=== PATIENT | female | born 1955 | race Caucasian/White ===

== ENCOUNTER 2021-11-04 06:57 | Inpatient (IN) | payer MEDICARE ==
[~2021-11-04] VITALS: Ht 167.6 cm; Wt 77.7 kg
[2021-11-04] VITALS (15 sets, daily range): BP systolic 94–137; BP diastolic 51–67
[2021-11-04] MEDS ORDERED: LORazepam 0.5 MG tablet PO PRN (07:20)
[2021-11-04] MEDS ORDERED: diphenhydrAMINE 25mg capsule PO PRN ×2 (07:20→11:00)
[2021-11-04] MEDS ORDERED: nitroGLYCERIN 0.4mg SUBLingual tab SL PRN (07:20)
[2021-11-04] MEDS ORDERED: METO25TA6 PO (07:33)
[2021-11-04] MEDS ORDERED: NITR0.4T48 (07:33)
[2021-11-04] MEDS ORDERED: TERB250T89 PO (07:33)
[2021-11-04] MEDS ORDERED: ATOR20TA66 PO (07:33)
[2021-11-04] MEDS ORDERED: ASPI-1071 PO (07:35)
[2021-11-04] MEDS ORDERED: IBUP-24 PO (07:39)
[2021-11-04] MEDS ORDERED: METAXALONE (07:39)
[2021-11-04] MEDS ORDERED: NITRO DUR (07:39)
[2021-11-04] MEDS: normal saline 1,000 ML IV SCH ×2 (07:46→15:53)
[2021-11-04] MEDS ORDERED: heparin 10,000 units/1 ML INJ ONE (08:00)
[2021-11-04] MEDS ORDERED: heparin 1,000 units/ml 10ml inj ONE (08:00)
[2021-11-04] MEDS ORDERED: MAGNESIUM SULFATE 4 MEQ/ML (5gm/10ml) injection ONE (08:00)
[2021-11-04] MEDS ORDERED: potassium Cl 2 mEq/ml inj IV ONE (08:00)
[2021-11-04] MEDS ORDERED: methylPREDNISolone sod succ 1000mg vial ONE (08:00)
[2021-11-04] MEDS ORDERED: aminocaproic acid 250 MG/1 ML inj. ONE (08:00)
[2021-11-04] MEDS ORDERED: phenylephrine 10mg/ml inj. ONE (08:00)
[2021-11-04] MEDS ORDERED: LIDOcaine 2% (20 mg/ml) 5ml cardiac syringe ONE (08:00)
[2021-11-04] MEDS ORDERED: calcium chloride 100 MG/1 ML inj IV ONE (08:00)
[2021-11-04] MEDS ORDERED: sodium bicarbonate (8.4%) 1 mEq/ml syringe ONE (08:00)
[2021-11-04] MEDS ORDERED: albumin (human) 25% 100 ML IV solution IV ONE (08:00)
[2021-11-04] MEDS ORDERED: fentaNYL/PF 50MCG/1 ML 2ML syringe ONE ×2 (09:34→10:44)
[2021-11-04] MEDS ORDERED: LIDOcaine 1% (10mg/ml)w/preservative inj. 20ml MDV ONE ×2 (09:34→10:44)
[2021-11-04] MEDS ORDERED: iohexol 350 MG/ML 50ML vial IV ONE ×2 (09:34→10:44)
[2021-11-04] MEDS ORDERED: midazolam 1 mg/ML 2ml injection ONE ×2 (09:34→10:44)
[2021-11-04] MEDS ORDERED: iohexol 350MG/ML 100ml bottle IV ONE ×2 (09:34→10:44)
[2021-11-04] MEDS ORDERED: heparin 1,000unit/ml 10ml vial 10 ML ONE (10:19)
[2021-11-04] MEDS ORDERED: potassium Cl 20 mEq SR tablet PO PRN (11:00)
[2021-11-04] MEDS ORDERED: vancomycin/NS 1 GM ADD-VANTAGE 250 ML IV ONE (11:00)
[2021-11-04] MEDS ORDERED: HYDROcodone/acetaminophen 5mg/325mg tablet PO PRN (11:00)
[2021-11-04] MEDS ORDERED: ondansetron 4mg rapidly disintigrating tab PO PRN (11:00)
[2021-11-04] MEDS ORDERED: gabapentin 400mg capsule PO ONE (11:00)
[2021-11-04] MEDS ORDERED: potassium Cl 20mEq/100mL bag 100 ML IV PRN (11:00)
[2021-11-04] MEDS ORDERED: MESSAGE TO NURSING PO ONE ×4 (11:00)
[2021-11-04] MEDS ORDERED: potassium Cl 40MEQ/250ML bag 250 ML IV PRN (11:00)
[2021-11-04] MEDS ORDERED: MESSAGE TO PHARMACY IJ ONE (11:00)
[2021-11-04] MEDS ORDERED: potassium Cl 40MEQ/1/2NS 520ml 520 ML IV PRN (11:00)
[2021-11-04] MEDS ORDERED: dextrose 50%-water 50ml dispensing syringe IV PRN (11:00)
[2021-11-04] MEDS ORDERED: Insulin Reg/NS 100units/100mL 100 ML IV SCH (11:00)
[2021-11-04] MEDS ORDERED: magnesium 2GM in 50ml NS 50 ML IV PRN (11:00)
[2021-11-04] MEDS ORDERED: cefazolin/dext.iso 2gm/50ml 50 ML IV ONE (11:00)
[2021-11-04] MEDS ORDERED: insulin glargine (Lantus) pen - multi-dose SQ PRN (11:00)
[2021-11-04] MEDS ORDERED: magnesium 4gm in 100ml NS 100 ML IV PRN (11:00)
[2021-11-04] MEDS ORDERED: potassium CL 10mEq/100ml bag 100 ML IV PRN (11:00)
[2021-11-04] MEDS ORDERED: metoprolol succinate 25mg (24-HOUR) SR. Tablet PO SCH (11:12)
[2021-11-04] MEDS ORDERED: magnesium hydroxide 30ml (MOM) UD suspension PO PRN (11:15)
[2021-11-04] MEDS ORDERED: HYDROcodone/acetaminophen 10/325mg tab PO PRN ×2 (11:15)
[2021-11-04] MEDS ORDERED: morphine 10mg/ml inj. IV PRN (11:15)
[2021-11-04] MEDS ORDERED: acetaminophen 325mg tablet PO PRN ×2 (11:15)
[2021-11-04] MEDS ORDERED: OXAZEpam 15mg capsule PO PRN (11:15)
[2021-11-04] MEDS ORDERED: proCHLORperazine 10 MG/2 ml inj IV PRN (11:15)
[2021-11-04] MEDS: normal saline 1000ml 1,000 ML IV SCH ×2 (11:30→16:00)
[2021-11-04] MEDS ORDERED: heparin 25,000 UNIT/250ml bag 250 ML IV SCH (11:35)
[2021-11-04] MEDS ORDERED: heparin 10,000 units/1 ML INJ IV ONE (11:35)
[2021-11-04] MEDS ORDERED: heparin 10,000 units/1 ML INJ IV PRN (11:35)
[2021-11-04] MEDS ORDERED: LIDOcaine 2% 10ml TOPICAL JELLY (Urojet) MM ONE (14:45)
[2021-11-04 15:52] LABS: CLARITY,URINE CLEAR (Clear); COLOR,URINE YELLOW (Yellow); GLUCOSE, URINE NEGATIVE (Neg); KETONES,URINE NEGATIVE (Neg); LEUKOCYTE ESTERASE ,URINE NEGATIVE (Neg); NITRITES, URINE NEGATIVE (Neg); OCCULT BLOOD,URINE TRACE-INTACT (Neg); PROTEIN,URINE NEGATIVE (Neg); UROBILINOGEN,URINE 0.2 E.U/dL (0.2-1.0)
[2021-11-04 15:54] LABS: UA COLLECTION TYPE FOLEY CATH
[2021-11-04 16:12] LABS: BACTERIA,URINE NONE SEEN /HPF (Neg); MUCUS STRANDS NONE SEEN /LPF (Neg); RBC,URINE 0-2 /HPF (0-2); SQUAMOUS EPITHELIAL CELL,UR FEW /LPF (FEW); WBC,URINE NONE SEEN /HPF (0-4)
[2021-11-04 17:15] LABS: BASOPHILS # (AUTO) 0.1 X10'3 (0-0.2); BASOPHILS % (AUTO) 0.9 % (0-1); EOSINOPHILS # (AUTO) 0.3 X10'3 (0-0.9); EOSINOPHILS % (AUTO) 3.2 % (0-6); HEMATOCRIT 36.4 % (35.0-45.0); LYMPHOCYTES # (AUTO) 3.9 X10'3 (1.1-4.8); LYMPHOCYTES % (AUTO) 41.3 % (21-51); MEAN CORPUSCULAR HGB CONC 33.1 g/dL (33.0-36.5); MEAN CORPUSCULAR VOLUME 90.7 FL (78-98); MEAN PLATELET VOLUME 8.4 FL (7.4-10.4); MONOCYTES # (AUTO) 0.9 X10'3 (0-0.9); MONOCYTES % (AUTO) 9.2 % (2-12); NEUTROPHILS # (AUTO) 4.3 X10'3 (1.8-7.7); NEUTROPHILS % (AUTO) 45.4 % (42-75); PLATELET COUNT 247 X10'3 (140-440); RED BLOOD COUNT 4.01 X10'6 (4.20-5.60); RED CELL DISTRIBUTION WIDTH 13.6 % (11.5-14.5); WHITE BLOOD COUNT 9.5 X10'3 (4.5-11.0)
[2021-11-04 17:25] LABS: ALBUMIN 3.1 G/DL (3.4-5.0); ANION GAP 5 (8-16); BLOOD UREA NITROGEN 16 MG/DL (7-18); CALCIUM 8.2 MG/DL (8.5-10.1); CHLORIDE 108 MMOL/L (99-107); CREATININE 0.84 MG/DL (0.40-0.90); GLUCOSE 101 MG/DL (70-104); POTASSIUM 3.7 MMOL/L (3.5-5.1); SODIUM 140 MMOL/L (135-145); TOTAL CARBON DIOXIDE 27.1 MMOL/L (24-32); eGFR 68 ML/MIN
[2021-11-04 17:30] LABS: HEMOGLOBIN A1C 5.8 % (4.5-6.2)
--- NOTE | 2021-11-04 18:30 | NUR ---
I have received report from Karina DOUGLAS from Short Stay unit and had the opportunity to ask questions and assume patient care. Patient was dropped off shortly after and I assumed responsibility of care.
--- NOTE | 2021-11-04 19:50 | NUR ---
Heparin drip is restarted and another aPTT will be drawn two hours from now per protocol.
[2021-11-04] MEDS ORDERED: sod chloride 0.9% 10ml flush syringe IV SCH (20:00)
[2021-11-04] MEDS ORDERED: docusate sod 100mg capsule PO SCH (20:00)
--- NOTE | 2021-11-04 21:50 | NUR ---
Patient stated that she was getting chest pain and that it has happened in the past. EKG was performed and results are in patients physical chart. Nitro sublingual was given per orders and labs were drawn.
[2021-11-04] MEDS: cyclobenzaprine 10mg tablet PO PRN (22:09)
[2021-11-04 22:10] LABS: BASOPHILS # (AUTO) 0.1 X10'3 (0-0.2); BASOPHILS % (AUTO) 1.1 % (0-1); EOSINOPHILS # (AUTO) 0.3 X10'3 (0-0.9); EOSINOPHILS % (AUTO) 3.3 % (0-6); HEMATOCRIT 35.5 % (35.0-45.0); HEMOGLOBIN 11.9 g/dl (12.0-16.0); MEAN CORPUSCULAR HEMOGLOBIN 30.2 PG (27.0-31.0); MEAN CORPUSCULAR HGB CONC 33.5 g/dL (33.0-36.5); MEAN PLATELET VOLUME 8.6 FL (7.4-10.4); MONOCYTES % (AUTO) 9.8 % (2-12); NEUTROPHILS # (AUTO) 4.6 X10'3 (1.8-7.7); NEUTROPHILS % (AUTO) 45.8 % (42-75); PLATELET COUNT 237 X10'3 (140-440); RED BLOOD COUNT 3.95 X10'6 (4.20-5.60); RED CELL DISTRIBUTION WIDTH 13.4 % (11.5-14.5); WHITE BLOOD COUNT 10.1 X10'3 (4.5-11.0)
[2021-11-04 22:23] LABS: APTT 34 SECONDS (22-32)
[2021-11-04 22:25] LABS: ALANINE AMINOTRANSFERASE 29 U/L (12-78); ALBUMIN 2.9 G/DL (3.4-5.0); ALKALINE PHOSPHATASE 110 IU/L (46-116); ANION GAP 6 (8-16); ASPARTATE AMINO TRANSFERASE 17 U/L (10-37); BILIRUBIN,TOTAL 0.1 MG/DL (0.1-1.0); BLOOD UREA NITROGEN 16 MG/DL (7-18); CALCIUM 8.1 MG/DL (8.5-10.1); CHLORIDE 109 MMOL/L (99-107); GLUCOSE 95 MG/DL (70-104); SODIUM 141 MMOL/L (135-145); TOTAL CARBON DIOXIDE 26.5 MMOL/L (24-32); TOTAL PROTEIN 5.8 G/DL (6.4-8.2); eGFR 72 ML/MIN
[2021-11-04 22:27] LABS: MAGNESIUM 1.9 MG/DL (1.5-2.4); PHOSPHORUS 3.3 MG/DL (2.3-4.5)
--- NOTE | 2021-11-04 22:30 | NUR ---
Patient has chronic back pain from prior lumbar fusion. Morphine was given and pain management was effective. repositioning was also performed.
[2021-11-04] MEDS: morphine 2 MG/ML inj. syringe IV PRN (22:45)
[2021-11-05] VITALS (29 sets, daily range): BP systolic 95–146; BP diastolic 50–70
--- NOTE | 2021-11-05 02:00 | NUR ---
Critical troponin level was received of 329. I reassessed the patient for signs and symptoms of a OK, the patient denied pain in her chest but said that there was slight pain in her jaw. I notified the charge nurse and followed up with Dr. Ibarra. The Doctor confirmed the critical value and the findings on the assessment and said he would be coming into the hospital to potentially take the patient into surgery early.
[2021-11-05] MEDS: morphine 2 MG/ML inj. syringe IV PRN (02:15)
[2021-11-05] MEDS ORDERED: VANCOMYCIN 1GM/200ML IVPB 200 ML IV ONE (02:25)
--- NOTE | 2021-11-05 02:30 | NUR ---
Dr. Ibarra came in and explained to the patient she would be going into surgery early and the patient agreed. Shortly after the PA and Anesthesiologist came in to confirm the surgery with the patient and explain the risks of the procedure. Blood transfusion and surgery consents were signed.
[2021-11-05 03:22] LABS: ABG HCO3 22.5 mmol/L (22.0-26.0); ABG OXYGEN SATURATION 94.2 % (94-97); FCOHb 0.1 % (0.0-3.9); FMetHb 0.2 % (0.0-1.5); FO2Hb 93.9 % (94-97); PATIENT TEMPERATURE 36.5; TOTAL HEMOGLOBIN 12.9 G/dl (12.0-16.0)
[2021-11-05] MEDS ORDERED: heparin 10,000 units/1 ML INJ ONE (03:22)
[2021-11-05] MEDS ORDERED: nitroGLYCERIN-Tridil 50MG/D5W 250 ML IV PRN ×2 (03:25→08:55)
[2021-11-05] MEDS ORDERED: nitroGLYCERIN-Tridil 50MG/D5W 250 ML IV ONE (03:25)
[2021-11-05] MEDS ORDERED: SUFENTANIL CITRATE 50 MCG/ML 2ml ampule IV ONE (03:32)
[2021-11-05] MEDS ORDERED: propofol inj 20 ML IV ONE (03:52)
[2021-11-05] MEDS ORDERED: LIDOcaine 2% (20mg/ml) 5ml vial ONE (03:52)
[2021-11-05] MEDS ORDERED: LORazepam 2 mg/ml vial ONE (03:52)
[2021-11-05] MEDS ORDERED: rocuronium 10mg/ml inj IV ONE ×2 (03:53→08:31)
[2021-11-05] MEDS ORDERED: phenylephrine 10mg/ml inj. ONE (03:54)
--- NOTE | 2021-11-05 03:55 | NUR ---
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 Ativan was given and the patient left for surgery.
[2021-11-05] MEDS ORDERED: famotidine/PF 10 mg/ml inj IV ONE (03:59)
[2021-11-05] MEDS: ipratropium 0.5 MG/2.5ML nebule IH SCH ×6 (04:00→23:50)
[2021-11-05 04:41] LABS: ABG BASE EXCESS -1.1 mmol/L (-2.0-2.0); ABG HCO3 22.5 mmol/L (22.0-26.0); ABG OXYGEN SATURATION 99.5 % (94-97); ABG PCO2 34.1 mmHg (32.0-45.0); CL (ABG) 111 mmol/L (98-110); FCOHb 0.1 % (0.0-3.9); FMetHb 0.3 % (0.0-1.5); FO2Hb 99.1 % (94-97); GLUCOSE (ABG) 87 mg/dl (70-105); IONIZED CA (ABG) 1.15 mmol/L (1.10-1.43); K (ABG) 3.7 mmol/L (3.5-5.0); TOTAL HEMOGLOBIN 11.3 G/dl (12.0-16.0)
[2021-11-05] MEDS ORDERED: papaverine 30 mg/ml 2ml inj. IA ONE (05:08)
[2021-11-05] MEDS ORDERED: heparin 10,000 units/1 ML INJ IR ONE (05:08)
[2021-11-05] MEDS ORDERED: ceFAZolin 1000mg inj IR ONE (05:09)
[2021-11-05 05:46] LABS: ABG BASE EXCESS -0.7 mmol/L (-2.0-2.0); ABG HCO3 22.7 mmol/L (22.0-26.0); ABG OXYGEN SATURATION 99.7 % (94-97); ABG PCO2 32.2 mmHg (32.0-45.0); ABG PO2 309.5 mmHg (75.0-100.0); CL (ABG) 109 mmol/L (98-110); FCOHb 0.8 % (0.0-3.9); FMetHb 0.3 % (0.0-1.5); FO2Hb 98.6 % (94-97); GLUCOSE (ABG) 97 mg/dl (70-105); IONIZED CA (ABG) 1.04 mmol/L (1.10-1.43); K (ABG) 5.2 mmol/L (3.5-5.0); TOTAL HEMOGLOBIN 8.5 G/dl (12.0-16.0)
[2021-11-05 06:27] LABS: ABG BASE EXCESS VENOUS -0.9 mmol/L (-2.0 - 2.0); ABG PCO2 VENOUS 40.6 mmHg (38.0-51.0); ABG PO2 VENOUS 47.2 mmHg (25.0-35.0); CL (ABG) 109 mmol/L (98-110); FHHb VENOUS 15.6 %; FMetHb VENOUS 0.3 % (0.0 - 0.5); FO2Hb VENOUS 83.1 %; GLUCOSE (ABG) 120 mg/dl (70-105); IONIZED CA (ABG) 1.05 mmol/L (1.10-1.43); K (ABG) 5.1 mmol/L (3.5-5.0); TOTAL HEMOGLOBIN 8.6 G/dl (12.0-16.0)
[2021-11-05 07:01] LABS: ABG BASE EXCESS 1.7 mmol/L (-2.0-2.0); ABG HCO3 25.9 mmol/L (22.0-26.0); ABG OXYGEN SATURATION 99.8 % (94-97); ABG PCO2 38.7 mmHg (32.0-45.0); ABG PO2 432.3 mmHg (75.0-100.0); CL (ABG) 109 mmol/L (98-110); FCOHb 1.1 % (0.0-3.9); FMetHb 0.3 % (0.0-1.5); FO2Hb 98.4 % (94-97); GLUCOSE (ABG) 122 mg/dl (70-105); IONIZED CA (ABG) 1.15 mmol/L (1.10-1.43); K (ABG) 5.5 mmol/L (3.5-5.0); TOTAL HEMOGLOBIN 7.8 G/dl (12.0-16.0)
[2021-11-05 07:17] LABS: ACT @ 1.70 U 304 SEC (193-297); ACT @ 2.84 U 435 SEC (260-420); BASELINE ACT 151 SEC (101-148); PATIENT WEIGHT 76.0k KG
[2021-11-05] MEDS ORDERED: vasopressin 40 UNIT in D5W 40ml IV DRIP IV SCH (07:50)
[2021-11-05] MEDS: terbinafine 250mg tablet PO SCH (08:00)
[2021-11-05] MEDS ORDERED: famotidine/PF 10 mg/ml inj IV SCH (08:00)
[2021-11-05] MEDS ORDERED: metoprolol tartrate 12.5mg (1/2 tablet) PO SCH (08:00)
[2021-11-05] MEDS ORDERED: atorvastatin 20mg tablet PO SCH (08:00)
[2021-11-05] MEDS ORDERED: famotidine/PF IV inj 20 MG in normal saline 100ml IV soln 100 ML IV SCH (08:00)
[2021-11-05] MEDS ORDERED: aspirin 81mg, enteric-coated 1 TAB TABLET.DR PO SCH (08:00)
[2021-11-05] MEDS ORDERED: famotidine 10mg/ml inj IV SCH (08:00)
[2021-11-05 08:03] LABS: ABG BASE EXCESS -1.6 mmol/L (-2.0-2.0); ABG HCO3 22.5 mmol/L (22.0-26.0); ABG PCO2 35.7 mmHg (32.0-45.0); ABG PO2 90.4 mmHg (75.0-100.0); CL (ABG) 111 mmol/L (98-110); FCOHb 0.4 % (0.0-3.9); FMetHb 0.3 % (0.0-1.5); FO2Hb 96.3 % (94-97); GLUCOSE (ABG) 161 mg/dl (70-105); K (ABG) 4.1 mmol/L (3.5-5.0); TOTAL HEMOGLOBIN 9.2 G/dl (12.0-16.0)
[2021-11-05 08:07] LABS: ACTIVATED CLOTTING TIME 113 SEC (101-148)
[2021-11-05] MEDS ORDERED: magnesium hydroxide 30ml (MOM) UD suspension PO PRN (08:55)
[2021-11-05] MEDS ORDERED: acetaminophen 325mg tablet PO PRN (08:55)
[2021-11-05] MEDS ORDERED: metoclopramide 5 mg/ml inj IV PRN (08:55)
[2021-11-05] MEDS ORDERED: potassium CL 10mEq/100ml bag 100 ML IV PRN (08:55)
[2021-11-05] MEDS ORDERED: DOPamine 400mg/D5W 250ml 250 ML IV PRN (08:55)
[2021-11-05] MEDS ORDERED: vasopressin inj. 40 UNIT in dextrose 5%-water 50ml 38 ML IV PRN (08:55)
[2021-11-05] MEDS ORDERED: NORepinephrine 8mg/ 250ml NS 250 ML IV PRN (08:55)
[2021-11-05] MEDS ORDERED: dextrose 50%-water 50ml dispensing syringe IV PRN (08:55)
[2021-11-05] MEDS ORDERED: magnesium 2GM in 50ml NS 50 ML IV PRN (08:55)
[2021-11-05] MEDS ORDERED: normal saline 250ml IV soln 250 ML IV PRN (08:55)
[2021-11-05] MEDS ORDERED: potassium Cl 20 mEq SR tablet PO PRN (08:55)
[2021-11-05] MEDS ORDERED: niCARDipine-NS 40mg/200ml IVPB 200 ML IV PRN (08:55)
[2021-11-05] MEDS ORDERED: magnesium 4gm in 100ml NS 100 ML IV PRN (08:55)
[2021-11-05] MEDS ORDERED: sodium chloride 0.45% 1,000 ML IV SCH (08:55)
[2021-11-05] MEDS ORDERED: insulin glargine (Lantus) pen - multi-dose SQ PRN (08:55)
[2021-11-05] MEDS ORDERED: magnesium citrate 296ml oral solution PO PRN (08:55)
[2021-11-05] MEDS ORDERED: ondansetron/PF 4mg/2ml inj IV PRN (08:55)
[2021-11-05] MEDS ORDERED: morphine 2 MG/ML inj. syringe IV PRN (08:55)
[2021-11-05] MEDS ORDERED: bisacodyl 10mg suppository rectal RC PRN (08:55)
[2021-11-05] MEDS ORDERED: Insulin Reg/NS 100units/100mL 100 ML IV SCH (08:55)
[2021-11-05] MEDS ORDERED: sodium phosphate inj. 30 MMOL in dextrose 5%-water 250 ML IV PRN (08:55)
[2021-11-05] MEDS ORDERED: Neutra Phos packet PO PRN (08:55)
[2021-11-05] MEDS ORDERED: mineral oil 133ml enema RC PRN (08:55)
--- NOTE | 2021-11-05 09:00 | NUR ---
Received to room 2046, accompanied by Dr. Gonzalo Newsome and surgical crew. See assessment records. Dior/PAline/CVPline and IVs noted in IV assessment records. All sites without redness or swelling. Vasoactive drugs infusing per [facility]. Lines connected zeroed and patent.
[2021-11-05 09:30] LABS: ABG BASE EXCESS -2.1 mmol/L (-2.0-2.0); ABG HCO3 23.5 mmol/L (22.0-26.0); ABG OXYGEN SATURATION 97.5 % (94-97); ABG PCO2 (T) 43.1 mmHg (32.0-45.0); ABG PO2 (T) 104.8 mmHg (75.0-100.0); FCOHb 0.4 % (0.0-3.9); FMetHb 0.2 % (0.0-1.5); FO2Hb 96.9 % (94-97); PEEP 5 cm H2O; RESPIRATORY RATE 12 b/min; TIDAL VOLUME 500 mL; TOTAL HEMOGLOBIN 13.5 G/dl (12.0-16.0)
[2021-11-05 09:54] LABS: APTT 27 SECONDS (22-32); BASOPHILS % (AUTO) 0.1 % (0-1); EOSINOPHILS # (AUTO) 0.1 X10'3 (0-0.9); EOSINOPHILS % (AUTO) 0.6 % (0-6); HEMATOCRIT 38.5 % (35.0-45.0); HEMOGLOBIN 12.5 g/dl (12.0-16.0); LYMPHOCYTES # (AUTO) 2.5 X10'3 (1.1-4.8); LYMPHOCYTES % (AUTO) 13.2 % (21-51); MEAN CORPUSCULAR HEMOGLOBIN 29.7 PG (27.0-31.0); MEAN CORPUSCULAR HGB CONC 32.6 g/dL (33.0-36.5); MEAN CORPUSCULAR VOLUME 91.2 FL (78-98); MEAN PLATELET VOLUME 8.7 FL (7.4-10.4); MONOCYTES # (AUTO) 1.3 X10'3 (0-0.9); NEUTROPHILS # (AUTO) 15.2 X10'3 (1.8-7.7); NEUTROPHILS % (AUTO) 79.1 % (42-75); PLATELET COUNT 250 X10'3 (140-440); RED BLOOD COUNT 4.22 X10'6 (4.20-5.60); RED CELL DISTRIBUTION WIDTH 13.4 % (11.5-14.5); WHITE BLOOD COUNT 19.2 X10'3 (4.5-11.0)
[2021-11-05] MEDS ORDERED: MESSAGE TO NURSING PO ONE (10:00)
[2021-11-05 10:01] LABS: ALANINE AMINOTRANSFERASE 27 U/L (12-78); ALBUMIN 3.2 G/DL (3.4-5.0); ALBUMIN/GLOBULIN RATIO 1.4 (1.1-1.5); ALKALINE PHOSPHATASE 90 IU/L (46-116); ANION GAP 9 (8-16); ASPARTATE AMINO TRANSFERASE 59 U/L (10-37); BILIRUBIN,TOTAL 0.7 MG/DL (0.1-1.0); BLOOD UREA NITROGEN 13 MG/DL (7-18); BUN/CREATININE RATIO 17.1 (6.6-38.0); CALCIUM 8.4 MG/DL (8.5-10.1); CHLORIDE 109 MMOL/L (99-107); CREATININE 0.76 MG/DL (0.40-0.90); GLUCOSE 197 MG/DL (70-104); MAGNESIUM 3.7 MG/DL (1.5-2.4); PHOSPHORUS 1.9 MG/DL (2.3-4.5); POTASSIUM 3.8 MMOL/L (3.5-5.1); SODIUM 142 MMOL/L (135-145); TOTAL CARBON DIOXIDE 24.4 MMOL/L (24-32); TOTAL PROTEIN 5.5 G/DL (6.4-8.2); eGFR 76 ML/MIN
[2021-11-05] MEDS: morphine 4 MG/ML inj SYRINge IV PRN ×4 (10:18→19:44)
[2021-11-05] MEDS: albumin (Human) 5% 250ml 250 ML IV PRN ×2 (10:20→15:00)
[2021-11-05] MEDS: Insulin Reg/NS 100units/100mL 100 ML IV SCH ×2 (10:29→11:02)
[2021-11-05] MEDS: potassium Cl 20mEq/100mL bag 100 ML IV PRN ×2 (10:59→12:06)
[2021-11-05] MEDS ORDERED: LORazepam 2 mg/ml vial IV ONE (11:00)
[2021-11-05] MEDS ORDERED: famotidine 20mg tablet PO ONE (11:00)
--- NOTE | 2021-11-05 11:22 | NUR ---
CABG Consult: Pt s/p emergent CABGx3 now extubated this AM per EMR. Pt would benefit from nutrition education once more appropriate prior to discharge. Addendum: 11/05/21 at [address] Amended: Links added.
[2021-11-05] MEDS: gabapentin 300mg capsule PO SCH ×2 (12:31→19:40)
[2021-11-05] MEDS: HYDROcodone/acetaminophen 10/325mg tab PO PRN ×2 (12:32→17:48)
[2021-11-05 15:21] LABS: BASOPHILS % (AUTO) 0 % (0-1); EOSINOPHILS % (AUTO) 0.1 % (0-6); HEMATOCRIT 33.4 % (35.0-45.0); HEMOGLOBIN 10.8 g/dl (12.0-16.0); LYMPHOCYTES # (AUTO) 1.3 X10'3 (1.1-4.8); LYMPHOCYTES % (AUTO) 8.1 % (21-51); MEAN CORPUSCULAR HEMOGLOBIN 29.5 PG (27.0-31.0); MEAN CORPUSCULAR HGB CONC 32.4 g/dL (33.0-36.5); MEAN CORPUSCULAR VOLUME 91.1 FL (78-98); MEAN PLATELET VOLUME 8.4 FL (7.4-10.4); MONOCYTES # (AUTO) 1.6 X10'3 (0-0.9); MONOCYTES % (AUTO) 10.3 % (2-12); NEUTROPHILS # (AUTO) 12.9 X10'3 (1.8-7.7); NEUTROPHILS % (AUTO) 81.5 % (42-75); PLATELET COUNT 216 X10'3 (140-440); RED BLOOD COUNT 3.66 X10'6 (4.20-5.60); RED CELL DISTRIBUTION WIDTH 13.5 % (11.5-14.5); WHITE BLOOD COUNT 15.8 X10'3 (4.5-11.0)
[2021-11-05 15:38] LABS: ALBUMIN 3.1 G/DL (3.4-5.0); ANION GAP 9 (8-16); BLOOD UREA NITROGEN 12 MG/DL (7-18); BUN/CREATININE RATIO 15.8 (6.6-38.0); CALCIUM 7.3 MG/DL (8.5-10.1); CHLORIDE 113 MMOL/L (99-107); CREATININE 0.76 MG/DL (0.40-0.90); GLUCOSE 149 MG/DL (70-104); MAGNESIUM 2.6 MG/DL (1.5-2.4); PHOSPHORUS 2.1 MG/DL (2.3-4.5); POTASSIUM 4.4 MMOL/L (3.5-5.1); SODIUM 145 MMOL/L (135-145); TOTAL CARBON DIOXIDE 22.6 MMOL/L (24-32); eGFR 76 ML/MIN
[2021-11-05] MEDS: ceFAZolin/D5W- 1GM premix 50 ML IV SCH (16:02)
[2021-11-05] MEDS: sodium phosphate inj. 15 MMOL in dextrose 5%-water 250 ML IV PRN (16:46)
[2021-11-05] MEDS: amiodarone/D5 450MG/250ML BAG 250 ML IV SCH (17:28)
--- NOTE | 2021-11-05 17:32 | NUR ---
Shift note: Dr. bIarra to see pt at about 12:00 along with Flaco Lowe. Not new orders with questions addressed. agreed with albumin for low BP. Flaco and Juan Diego ( & son) to see pt about 1030. Questions answered. MD returned about 1300 to see if family had seen pt. Around 1500, and son returned. Questions answered. The took home a green back pack and clothing with the exception of 1 black cell phone and her glasses.
--- NOTE | 2021-11-05 18:13 | NUR ---
Problems reprioritized. Patient report given, questions answered & plan of care reviewed with Sofiya DOUGLAS.
[2021-11-05] MEDS: cyclobenzaprine 10mg tablet PO PRN (18:58)
[2021-11-05] MEDS: mupirocin 2% nasal ointment 1gm UD NS SCH (19:40)
[2021-11-05] MEDS: vancomycin/NS 1 GM ADD-VANTAGE 200 ML IV SCH (19:40)
[2021-11-05] MEDS: atorvastatin 10mg tablet PO SCH (19:40)
[2021-11-05] MEDS: sennosides/docusate sodium tablet PO SCH (19:40)
[2021-11-05 19:55] LABS: ABG BASE EXCESS -4.1 mmol/L (-2.0-2.0); ABG HCO3 22.2 mmol/L (22.0-26.0); ABG PCO2 (T) 45.5 mmHg (32.0-45.0); ABG PO2 (T) 79.4 mmHg (75.0-100.0); FCOHb 0.3 % (0.0-3.9); FMetHb 0.3 % (0.0-1.5); FO2Hb 94.4 % (94-97); TIDAL VOLUME 491 mL; TOTAL HEMOGLOBIN 11.4 G/dl (12.0-16.0)
[2021-11-05 22:19] LABS: ABG BASE EXCESS -3.8 mmol/L (-2.0-2.0); ABG HCO3 21.7 mmol/L (22.0-26.0); ABG OXYGEN SATURATION 95.5 % (94-97); ABG PCO2 (T) 41.7 mmHg (32.0-45.0); ABG PO2 (T) 79.9 mmHg (75.0-100.0); FCOHb 0.3 % (0.0-3.9); FMetHb 0.2 % (0.0-1.5); PATIENT TEMPERATURE 37.3; TIDAL VOLUME 600 mL; TOTAL HEMOGLOBIN 11.5 G/dl (12.0-16.0)
--- NOTE | 2021-11-05 22:45 | NUR ---
Pt extubated to 4L NC.
[2021-11-05 23:47] LABS: ABG BASE EXCESS -4.8 mmol/L (-2.0-2.0); ABG HCO3 20.6 mmol/L (22.0-26.0); ABG OXYGEN SATURATION 95.7 % (94-97); ABG PCO2 (T) 39.7 mmHg (32.0-45.0); ABG PO2 (T) 85.1 mmHg (75.0-100.0); FCOHb 0.3 % (0.0-3.9); FMetHb 0.3 % (0.0-1.5); FO2Hb 95.1 % (94-97); PATIENT TEMPERATURE 37.2; TOTAL HEMOGLOBIN 11.4 G/dl (12.0-16.0)
[2021-11-06] VITALS (23 sets, daily range): BP systolic 92–127; BP diastolic 49–68
[2021-11-06] MEDS: amiodarone/D5 450MG/250ML BAG 250 ML IV SCH ×2 (00:20→06:59)
[2021-11-06] MEDS: ceFAZolin/D5W- 1GM premix 50 ML IV SCH ×3 (00:44→16:00)
[2021-11-06 02:16] LABS: BASOPHILS % (AUTO) 0.1 % (0-1); EOSINOPHILS % (AUTO) 0 % (0-6); HEMATOCRIT 31.1 % (35.0-45.0); HEMOGLOBIN 10.3 g/dl (12.0-16.0); LYMPHOCYTES # (AUTO) 1.3 X10'3 (1.1-4.8); LYMPHOCYTES % (AUTO) 8.3 % (21-51); MEAN CORPUSCULAR VOLUME 90.9 FL (78-98); MEAN PLATELET VOLUME 8.4 FL (7.4-10.4); MONOCYTES # (AUTO) 1.5 X10'3 (0-0.9); MONOCYTES % (AUTO) 9.6 % (2-12); NEUTROPHILS # (AUTO) 12.9 X10'3 (1.8-7.7); PLATELET COUNT 185 X10'3 (140-440); RED BLOOD COUNT 3.42 X10'6 (4.20-5.60); RED CELL DISTRIBUTION WIDTH 13.6 % (11.5-14.5); WHITE BLOOD COUNT 15.8 X10'3 (4.5-11.0)
[2021-11-06 02:27] LABS: APTT 34 SECONDS (22-32)
[2021-11-06 02:36] LABS: ALANINE AMINOTRANSFERASE 33 U/L (12-78); ALBUMIN 3.2 G/DL (3.4-5.0); ALBUMIN/GLOBULIN RATIO 1.5 (1.1-1.5); ALKALINE PHOSPHATASE 62 IU/L (46-116); ANION GAP 6 (8-16); ASPARTATE AMINO TRANSFERASE 139 U/L (10-37); BILIRUBIN,TOTAL 0.3 MG/DL (0.1-1.0); BLOOD UREA NITROGEN 12 MG/DL (7-18); BUN/CREATININE RATIO 18.8 (6.6-38.0); CALCIUM 7.7 MG/DL (8.5-10.1); CHLORIDE 113 MMOL/L (99-107); CREATININE 0.64 MG/DL (0.40-0.90); GLUCOSE 121 MG/DL (70-104); MAGNESIUM 2.4 MG/DL (1.5-2.4); PHOSPHORUS 3.4 MG/DL (2.3-4.5); POTASSIUM 4.4 MMOL/L (3.5-5.1); SODIUM 144 MMOL/L (135-145); TOTAL CARBON DIOXIDE 24.6 MMOL/L (24-32); TOTAL PROTEIN 5.4 G/DL (6.4-8.2); eGFR > 90 ML/MIN
[2021-11-06] MEDS: cyclobenzaprine 10mg tablet PO PRN (02:37)
[2021-11-06] MEDS: ipratropium 0.5 MG/2.5ML nebule IH SCH ×5 (03:56→20:44)
[2021-11-06] MEDS: morphine 4 MG/ML inj SYRINge IV PRN (04:52)
--- NOTE | 2021-11-06 05:55 | NUR ---
Pt got up to chair and back to bed. Tolerated well.
[2021-11-06] MEDS ORDERED: amiodarone/D5 360MG/200ML BAG 250 ML IV SCH (06:15)
--- NOTE | 2021-11-06 06:15 | NUR ---
Patient in room ICU 2046. I have received report from Sofiya DOUGLAS and had the opportunity to ask questions and assume patient care.
[2021-11-06] MEDS: mupirocin 2% nasal ointment 1gm UD NS SCH ×2 (08:00→20:06)
[2021-11-06] MEDS ORDERED: pantoprazole 40MG/NS 100ML BAG 100 ML IV SCH (08:00)
[2021-11-06] MEDS: amiodarone 200mg tablet PO SCH ×2 (08:15→20:07)
[2021-11-06] MEDS: sennosides/docusate sodium tablet PO SCH ×2 (08:55→20:07)
[2021-11-06] MEDS: vancomycin/NS 1 GM ADD-VANTAGE 200 ML IV SCH ×2 (08:55→20:07)
[2021-11-06] MEDS: aspirin 325mg tablet, delayed-release (Ecotrin) PO SCH (08:55)
[2021-11-06] MEDS: metoprolol tartrate 12.5mg (1/2 tablet) PO SCH ×2 (08:57→20:00)
[2021-11-06] MEDS: gabapentin 300mg capsule PO SCH ×3 (08:57→20:07)
[2021-11-06] MEDS: HYDROcodone/acetaminophen 10/325mg tab PO PRN ×2 (09:07→20:47)
--- NOTE | 2021-11-06 10:15 | NUR ---
PA Visit PA to see pt & plan of care explained. Family to see. Pt confused when waking but reorients quickly. Art line discontinued, cath tip in tact. SG line removed.
--- NOTE | 2021-11-06 10:24 | NUR ---
Held med Pt PO Metoprolol was held as pts BP was 99/54. PA notified of hold as well as CN.
[2021-11-06] MEDS: Insulin Reg/NS 100units/100mL 100 ML IV SCH (11:50)
[2021-11-06] MEDS: terbinafine 250mg tablet PO SCH (13:20)
[2021-11-06] MEDS ORDERED: ondansetron 4mg rapidly disintigrating tab PO PRN (15:00)
--- NOTE | 2021-11-06 18:20 | NUR ---
Problems reprioritized. Patient report given, questions answered & plan of care reviewed with Rere DOUGLAS.
[2021-11-06] MEDS: atorvastatin 10mg tablet PO SCH (20:07)
[2021-11-07] VITALS (23 sets, daily range): BP systolic 88–122; BP diastolic 43–69
[2021-11-07] MEDS: ceFAZolin/D5W- 1GM premix 50 ML IV SCH (00:18)
[2021-11-07] MEDS: ipratropium 0.5 MG/2.5ML nebule IH SCH ×7 (00:27→23:37)
[2021-11-07 03:59] LABS: BASOPHILS % (AUTO) 0 % (0-1); EOSINOPHILS % (AUTO) 0 % (0-6); HEMOGLOBIN 8.9 g/dl (12.0-16.0); LYMPHOCYTES # (AUTO) 1.2 X10'3 (1.1-4.8); LYMPHOCYTES % (AUTO) 8.2 % (21-51); MEAN CORPUSCULAR HEMOGLOBIN 29.9 PG (27.0-31.0); MEAN CORPUSCULAR HGB CONC 32.8 g/dL (33.0-36.5); MEAN CORPUSCULAR VOLUME 90.9 FL (78-98); MEAN PLATELET VOLUME 9.2 FL (7.4-10.4); MONOCYTES # (AUTO) 1.4 X10'3 (0-0.9); MONOCYTES % (AUTO) 9.1 % (2-12); NEUTROPHILS # (AUTO) 12.5 X10'3 (1.8-7.7); NEUTROPHILS % (AUTO) 82.7 % (42-75); PLATELET COUNT 142 X10'3 (140-440); RED BLOOD COUNT 2.97 X10'6 (4.20-5.60); RED CELL DISTRIBUTION WIDTH 13.9 % (11.5-14.5); WHITE BLOOD COUNT 15.1 X10'3 (4.5-11.0)
[2021-11-07 04:10] LABS: ALBUMIN 2.8 G/DL (3.4-5.0); ANION GAP 4 (8-16); BLOOD UREA NITROGEN 18 MG/DL (7-18); BUN/CREATININE RATIO 23.4 (6.6-38.0); CALCIUM 7.2 MG/DL (8.5-10.1); CHLORIDE 108 MMOL/L (99-107); CREATININE 0.77 MG/DL (0.40-0.90); GLUCOSE 113 MG/DL (70-104); MAGNESIUM 2.4 MG/DL (1.5-2.4); PHOSPHORUS 3.1 MG/DL (2.3-4.5); POTASSIUM 4.9 MMOL/L (3.5-5.1); SODIUM 140 MMOL/L (135-145); TOTAL CARBON DIOXIDE 28.1 MMOL/L (24-32); eGFR 75 ML/MIN
[2021-11-07] MEDS: aspirin 325mg tablet, delayed-release (Ecotrin) PO SCH (08:14)
[2021-11-07] MEDS: terbinafine 250mg tablet PO SCH (08:14)
[2021-11-07] MEDS: gabapentin 300mg capsule PO SCH (08:16)
[2021-11-07] MEDS: metoprolol tartrate 12.5mg (1/2 tablet) PO SCH ×2 (08:16→20:18)
[2021-11-07] MEDS: sennosides/docusate sodium tablet PO SCH ×2 (08:17→20:18)
[2021-11-07] MEDS: pantoprazole 40mg Tablet.DR PO SCH (08:17)
[2021-11-07] MEDS: amiodarone 200mg tablet PO SCH ×2 (08:17→20:19)
[2021-11-07] MEDS: HYDROcodone/acetaminophen 10/325mg tab PO PRN ×2 (08:18→18:00)
[2021-11-07] MEDS: mupirocin 2% nasal ointment 1gm UD NS SCH (08:22)
[2021-11-07] MEDS: midodrine 5mg tablet PO SCH (16:00)
[2021-11-07] MEDS: atorvastatin 10mg tablet PO SCH (20:17)
--- NOTE | 2021-11-07 22:06 | NUR ---
Rec'd call from pt's stating pt had called him to tell him she had been taken in a truck to another location and was now in a different room. Assured pt was still in her room in the ICU and nurse will follow up with pt. Went to pts room and reassessed. alert and oriented to place and most circumstances. became teary when informed she had not been moved or taken in a truck. States, "but it felt so real". Assured her she has not had any more pain medication since day shift's last dose. Repositioned patient. therapeutic communication provided to reorient to the here and now. VSS
[2021-11-08] VITALS (22 sets, daily range): BP systolic 103–141; BP diastolic 50–89
--- NOTE | 2021-11-08 02:16 | NUR ---
at bedside for am lab draws. noted pt is still awake. Noted flat affect and withdrawn demeanor. questioned pt about the change in her behavior since the previous phone call to her and she immediately began to cry. Stated it was so real and it really shook her up. Therapeutic communication provided. During time in the room, pt asks if the curtain can be drawn "so that man can't look in anymore". Assured there is no man looking in the window. Explained at least a portion of the curtain needs to remain open so her monitor is easily visible. Assured I am right outside the room and can quickly hear her and respond if she has any concerns. encouraged to try to sleep and use call light if she has any concerns or fears.
[2021-11-08 03:12] LABS: BASOPHILS % (AUTO) 0.3 % (0-1); EOSINOPHILS % (AUTO) 0 % (0-6); HEMATOCRIT 26.3 % (35.0-45.0); HEMOGLOBIN 8.8 g/dl (12.0-16.0); LYMPHOCYTES # (AUTO) 1.3 X10'3 (1.1-4.8); LYMPHOCYTES % (AUTO) 9.5 % (21-51); MEAN CORPUSCULAR HEMOGLOBIN 30.4 PG (27.0-31.0); MEAN CORPUSCULAR HGB CONC 33.5 g/dL (33.0-36.5); MEAN PLATELET VOLUME 9.9 FL (7.4-10.4); MONOCYTES # (AUTO) 1.3 X10'3 (0-0.9); MONOCYTES % (AUTO) 9.5 % (2-12); NEUTROPHILS # (AUTO) 11.4 X10'3 (1.8-7.7); NEUTROPHILS % (AUTO) 80.7 % (42-75); PLATELET COUNT 136 X10'3 (140-440); RED BLOOD COUNT 2.89 X10'6 (4.20-5.60); RED CELL DISTRIBUTION WIDTH 13.6 % (11.5-14.5); WHITE BLOOD COUNT 14.1 X10'3 (4.5-11.0)
[2021-11-08 03:18] LABS: ALBUMIN 2.8 G/DL (3.4-5.0); ANION GAP 0 (8-16); BLOOD UREA NITROGEN 21 MG/DL (7-18); BUN/CREATININE RATIO 32.3 (6.6-38.0); CALCIUM 8.2 MG/DL (8.5-10.1); CHLORIDE 104 MMOL/L (99-107); CREATININE 0.65 MG/DL (0.40-0.90); GLUCOSE 111 MG/DL (70-104); MAGNESIUM 2.5 MG/DL (1.5-2.4); PHOSPHORUS 2.2 MG/DL (2.3-4.5); POTASSIUM 4.3 MMOL/L (3.5-5.1); SODIUM 133 MMOL/L (135-145); TOTAL CARBON DIOXIDE 29.4 MMOL/L (24-32); eGFR > 90 ML/MIN
[2021-11-08] MEDS: ipratropium 0.5 MG/2.5ML nebule IH SCH ×6 (03:37→23:34)
--- NOTE | 2021-11-08 03:45 | NUR ---
Entered room to find patient in severe pain. Restless in bed and gripping her right chest below her breast. Sts she was coughing and coughed up some blood. Not sure if the pain was present before coughing or after. Refuses norco or morphine because of prior bad experience with increased confusion. Offered tylenol and flexeril - pt agrees to take these. while scanning medications, pt is witnessed to sit herself up in bed and using her arms, lift herself off the bed to sit up further in bed. Pt has had repeated reminders and explanations throughout the shift as to why she is not to be using her arms to reach, push-up, etc as this increases risk of chest incision dishesence. Verbalizes understanding, but will no longer make eye contact with me. Refuses to be turned at this time, stating "the doctor told me I was supposed to lie on my back as much as possible". Explained risks of pneumonia, decubitis, etc from lying on back for long periods of time, but pt continues to refuse to turn.
[2021-11-08] MEDS: acetaminophen 325mg tablet PO PRN ×2 (03:49→22:31)
[2021-11-08] MEDS: cyclobenzaprine 10mg tablet PO PRN (04:06)
[2021-11-08] MEDS: sodium phosphate inj. 15 MMOL in dextrose 5%-water 250 ML IV PRN (05:22)
--- NOTE | 2021-11-08 06:30 | NUR ---
During report from business management consultant to day shift, patient's bed alarm began to sound. x3 RN go in bedside to find patient attempting to get out of bed on her own and pushing up with her hands to move her body. Patient was educated on sternal precautions and was given the reasons why we have those safeties in place. Patient stated that she already knew. Patient was educated on using her call light if she needed to get up or needed anything. Patient stated an understanding. Will continue to monitor.
[2021-11-08] MEDS ORDERED: potassium Cl 20mEq/100mL bag 100 ML IV PRN (08:50)
[2021-11-08] MEDS ORDERED: magnesium 4gm in 100ml NS 100 ML IV PRN (08:50)
[2021-11-08] MEDS ORDERED: magnesium 2GM in 50ml NS 50 ML IV PRN (08:50)
[2021-11-08] MEDS ORDERED: potassium CL 10mEq/100ml bag 100 ML IV PRN (08:50)
[2021-11-08] MEDS ORDERED: potassium Cl 40MEQ/1/2NS 520ml 520 ML IV PRN (08:50)
[2021-11-08] MEDS ORDERED: HYDROcodone/acetaminophen 5mg/325mg tablet PO PRN (08:50)
[2021-11-08] MEDS ORDERED: potassium Cl 20 mEq SR tablet PO PRN (08:50)
[2021-11-08] MEDS ORDERED: potassium Cl 40MEQ/250ML bag 250 ML IV PRN (08:50)
[2021-11-08] MEDS: amiodarone 200mg tablet PO SCH ×2 (08:54→20:58)
[2021-11-08] MEDS: terbinafine 250mg tablet PO SCH (08:54)
[2021-11-08] MEDS: aspirin 325mg tablet, delayed-release (Ecotrin) PO SCH (08:54)
[2021-11-08] MEDS: midodrine 5mg tablet PO SCH ×3 (08:54→16:11)
[2021-11-08] MEDS: sennosides/docusate sodium tablet PO SCH ×2 (08:54→20:58)
[2021-11-08] MEDS: metoprolol tartrate 12.5mg (1/2 tablet) PO SCH ×2 (08:56→20:59)
[2021-11-08] MEDS: pantoprazole 40mg Tablet.DR PO SCH (08:59)
--- NOTE | 2021-11-08 09:00 | NUR ---
Patient has been redirected many times on using the call light to ask for help. Patient continues to disregard sternal precautions despite several educational conversations. aware.
--- NOTE | 2021-11-08 10:58 | NUR ---
Went in because patient's son bedside was saying, "mom you need to wait for someone to help." Patient responded to her son, "I am just going to stand up, I don't need to wait". RN in to talk with patient. Patient stated that just needed to stand up. Patient was informed that it would be fine to stand up as long as she waits for staff to help her and also as long as she uses sternal precautions. Patient became very defensive stating that she is "going to be going home soon and there won't be anyone there to remind her on how to move safely". She feels she "should start moving normal now". Patient was educated that her definition of "normal" is not what is the most safe for her and her current post-surgical state. Patient rolled her eyes and stated that she is "listening to her body" and "knows her limits" better than we (nursing staff) do. Patient was asked if she would like to safely stand up now that nursing staff is bedside. Patient stated, "I don't want to anymore." It was also noted that the patient's PIV was pulled out. Patient stated that her son pulled it out. Her son stated "I did not pull that out". Patient then stated the Doctor pulled it out, RN told her that the doctor did not pull it out because RN was bedside during MD visit. Patient then admitted that she pulled it out. Patient was informed about the importance in venous access for safety. Patient stated she "already knows". RN grabbed supplies and placed a new PIV.
--- NOTE | 2021-11-08 11:32 | NUR ---
Attempted to have patient ambulate, patient stated she would not get up with RN. RN expressed concern for patient moving self unsafely and not wanting to ambulate with nursing staff. Patient stated, "you seem to care way more than I do."
--- NOTE | 2021-11-08 13:13 | NUR ---
continued safety education regarding sternal precautions. reinforcement needed AEB pt's continued use of BUE to push up and reposition self/ try to get out of bed. Sitter/family at bedside to ensure safety to best ability. pt with minimal verbalization of understanding out side of "I KNOW!" and rolling eyes or quickly changing subject. pt refusing bed forman for BM. "i'm not using that. 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 after a couple more minutes of discussing the benefits of using a commode and allowing staff to assist, pt agreed. constant reminders during transfer to commode necessary to maintain sternal precautions to best ability. sitter at bedside. pt sat for one minute on bed side commode and stated she can not go. Addendum: 11/08/21 at 1330 by Maria Antonia Retana RN pt assisted back to bed.
--- NOTE | 2021-11-08 15:36 | NUR ---
Spoke with patient's son who is very concerned for the patient's well being and safety. He stated that the patient is very confused and it seems that she is delusional. He stated that the patient told him, "I don't trust them, they are running a sex trafficing ring." Expressed similar concern for patient's safety and explained that we have a sitter with her now to help protect her from not using sternal precautions. Son stated that he felt better knowing that information.
--- NOTE | 2021-11-08 15:57 | NUR ---
Called Flaco MCELROY regarding pt current status/difficulty with safety. new orders for low dose nicotine patch, sitter and ativan 0.5mg prn [id number] (may repeat the first dose x1 if ineffective. )
[2021-11-08] MEDS ORDERED: LORazepam 0.5 MG tablet PO PRN (16:00)
[2021-11-08] MEDS: nicotine 14mg patch - 24hr TD SCH (16:12)
--- NOTE | 2021-11-08 16:34 | NUR ---
pt impulsively sat up with arms, despite redirection from sitter, scooted using arms to push up to the end of the bed. RN arrived and asked the pt what her goal was at this time. the pt said "i'm walking now!" and pushed up with arms. nurse immediately redirected pt to stop pushing up with her arms/sternal precautions. asked pt if she was willing to follow these simple directions, then, going for a walk would be possible. pt snapped at nurse "no. just lay me down. get this shit off me [gait belt]." gait belt removed, pt instructed to hold onto heart pillow and allow PCT and RN to assist her back up in the bed. pt immediately flopped back on her elbows. draw sheet utilized to pull pt up in the bed. HOB elevated to 45 degrees per pt preference. sitter remains at bedside.
--- NOTE | 2021-11-08 17:46 | NUR ---
garcia catheter discontinued. tip intact. pt tolerated very well. immediate safety education and reinforcement required. pt with increased safety measure compliance after ativan prn.
--- NOTE | 2021-11-08 18:18 | NUR ---
Problems reprioritized. Patient report given, questions answered & plan of care reviewed with Edel DOUGLAS. Pt high fowlers in bed coloring/drawing visiting with her visiting friend. breathing even and non labored. occasional dry cough. IS encouraged. no s/sx acute distress at this time. safety measures in place. sitter at bedside.
[2021-11-08] MEDS: potassium Cl 20 mEq SR tablet PO SCH (20:00)
[2021-11-08] MEDS: magnesium Cl slow-release 64mg tablet PO SCH (20:00)
--- NOTE | 2021-11-08 20:15 | NUR ---
increasingly agitated because she wants to get up unattended and go to a bathroom, despite repeated explanations regarding why that is not possible (unsafe, no bathrooms in ICU, etc). While on phone discussing issue with Dr. Ibarra, pt becomes combative and begins swinging and kicking at the sitter at the bedside. ended call and went to bedside. pt trying to hit and kick staff, while also trying to pull out her MYRIAM. placed in restraints x 4. Dr. Ibarra called to update
[2021-11-08] MEDS ORDERED: risperiDONE 0.5mg tablet PO ONE (20:35)
--- NOTE | 2021-11-08 20:45 | NUR ---
Dr. Ibarra at bedside to attempt to de-escalate situation. Orders noted to allow patient to sit on BSC unattended with curtain drawn, despite increased fall risk r/t confusion and monitor.
[2021-11-08] MEDS: atorvastatin 10mg tablet PO SCH (20:58)
[2021-11-09] VITALS (21 sets, daily range): BP systolic 106–135; BP diastolic 43–83
--- NOTE | 2021-11-09 00:11 | NUR ---
Remains confused to time and events, continues with visual hallucinations. non-compliant and argumentative when asked to refrain from harmful behavior such as pushing up with her arms or getting out of the bed without assistance. Resistant to instuctions on how to safely perform these activities.
--- NOTE | 2021-11-09 02:00 | NUR ---
Noted pt on phone to [place] police department claiming she was kidnapped and brought here, being held against her will [employer] advised pt to follow doctor's orders, or call [place] [employer] [facility]. Moments later I responded to the sitter's cries for help to find pt standing at the bedside attempting to tear off the provena wound vac to her chest. Physically restrained pt and returned her to her bed. Pt is kicking, screaming and attempting to bite staff. Security called and pt placed in 4-pt restraints.
[2021-11-09] MEDS ORDERED: RISPERIDONE 37.5 MG/2 ML IM ONE (02:10)
[2021-11-09] MEDS ORDERED: OLANZapine **IM** 10 mg inj. IM ONE (02:20)
--- NOTE | 2021-11-09 02:20 | NUR ---
Call in to Dr. Ibarra to report latest violent outburst. Orders noted for IM Zyprexa. Pt has bitten off her nasal cannula and is verbally abusing staff with threats, cuss-words and names.
--- NOTE | 2021-11-09 02:30 | NUR ---
Medicated with Zyprexa as ordered with patient demonstrating a calmer demeanor after approx 15 min. Monitor and O2 replaced at this time. wound vac dressing remains D/I, VSS. While performing a partial linen change, pt awakens and again becomes verbally abusive and threatening. Remains in 4-pt restraints at this time
--- NOTE | 2021-11-09 03:20 | NUR ---
pulled free of restraint and again attempting to hit staff. 2nd code christiano called and patient safely restrained again. Call to Dr. Ibarra to report with orders noted
[2021-11-09] MEDS: ipratropium 0.5 MG/2.5ML nebule IH SCH ×2 (03:23→08:11)
[2021-11-09] MEDS ORDERED: dexmedetomidine/D5W 100mL 100 ML IV SCH (03:35)
[2021-11-09] MEDS ORDERED: NORepinephrine 8mg/ 250ml NS 250 ML IV SCH (03:35)
--- NOTE | 2021-11-09 04:26 | NUR ---
Dozing quietly, weaned precedex to 0.6mcg/kg/hr. will attempt to remove leg restraints if pt remains calm and drowsy.
--- NOTE | 2021-11-09 06:03 | NUR ---
Resting quietly on 0.8mcg/kg/hr, but awakens agitated & verbally abusive with even the slightest tactile stimuli. Remains in 4-pt restraints with a sitter at the bedside
[2021-11-09] MEDS: pantoprazole 40mg Tablet.DR PO SCH ×3 (07:30→09:59)
[2021-11-09] MEDS: magnesium Cl slow-release 64mg tablet PO SCH ×2 (07:33→19:35)
[2021-11-09] MEDS: metoprolol tartrate 12.5mg (1/2 tablet) PO SCH ×2 (07:33→19:36)
[2021-11-09] MEDS: potassium Cl 20 mEq SR tablet PO SCH ×2 (07:34→19:34)
[2021-11-09] MEDS: sennosides/docusate sodium tablet PO SCH ×3 (08:00→19:35)
[2021-11-09] MEDS: aspirin 325mg tablet, delayed-release (Ecotrin) PO SCH ×3 (08:00→09:59)
[2021-11-09] MEDS: amiodarone 200mg tablet PO SCH ×4 (08:00→19:35)
[2021-11-09] MEDS: terbinafine 250mg tablet PO SCH ×2 (08:00→08:21)
[2021-11-09] MEDS: nicotine 14mg patch - 24hr TD SCH (08:19)
[2021-11-09] MEDS ORDERED: magnesium 2GM in 50ml NS 50 ML IV PRN (09:20)
[2021-11-09] MEDS ORDERED: potassium Cl 40MEQ/1/2NS 520ml 520 ML IV PRN (09:20)
[2021-11-09] MEDS ORDERED: magnesium 4gm in 100ml NS 100 ML IV PRN (09:20)
[2021-11-09] MEDS ORDERED: potassium Cl 40MEQ/250ML bag 250 ML IV PRN (09:20)
[2021-11-09] MEDS ORDERED: potassium Cl 20 mEq SR tablet PO PRN (09:20)
[2021-11-09] MEDS ORDERED: potassium CL 10mEq/100ml bag 100 ML IV PRN (09:20)
[2021-11-09] MEDS ORDERED: potassium Cl 20mEq/100mL bag 100 ML IV PRN (09:20)
--- NOTE | 2021-11-09 11:38 | NUR ---
Initial: Pt s/p emergent CABGx3 3/3 per EMR. Currently on Regular/NCS diet w/ avg intake 45% x 7 meals partially meeting needs. Pt noted to have been confused and agitated recently which may have been affecting PO. Pt is agreeable to strawberry [employer] BID to assist w/ wound healing. LBM 3/4 receiving routine bowel care. Provided pt w/ written and verbal CABG nutrition therapy ed w/ RD contact info. Will continue to monitor. Recs: 1. Continue Regular/NCS diet as tolerated 2. Gratis [employer] BIDBD; pending MD verification 3. Bowel care per rx 4. Weekly wts Addendum: 11/09/21 at [address] Amended: Links added.
[2021-11-09 13:31] LABS: ALBUMIN 2.8 G/DL (3.4-5.0); ANION GAP 8 (8-16); BLOOD UREA NITROGEN 16 MG/DL (7-18); BUN/CREATININE RATIO 21.1 (6.6-38.0); CALCIUM 8.3 MG/DL (8.5-10.1); CHLORIDE 109 MMOL/L (99-107); CREATININE 0.76 MG/DL (0.40-0.90); GLUCOSE 98 MG/DL (70-104); POTASSIUM 3.4 MMOL/L (3.5-5.1); SODIUM 145 MMOL/L (135-145); TOTAL CARBON DIOXIDE 27.9 MMOL/L (24-32); eGFR 76 ML/MIN
[2021-11-09 13:34] LABS: BASOPHILS % (AUTO) 0.4 % (0-1); EOSINOPHILS # (AUTO) 0.6 X10'3 (0-0.9); EOSINOPHILS % (AUTO) 5.5 % (0-6); HEMATOCRIT 32.9 % (35.0-45.0); HEMOGLOBIN 10.9 g/dl (12.0-16.0); LYMPHOCYTES # (AUTO) 2.5 X10'3 (1.1-4.8); LYMPHOCYTES % (AUTO) 24.3 % (21-51); MEAN CORPUSCULAR HEMOGLOBIN 30.5 PG (27.0-31.0); MEAN CORPUSCULAR HGB CONC 33.2 g/dL (33.0-36.5); MEAN CORPUSCULAR VOLUME 91.8 FL (78-98); MEAN PLATELET VOLUME 9.2 FL (7.4-10.4); MONOCYTES # (AUTO) 0.8 X10'3 (0-0.9); MONOCYTES % (AUTO) 7.5 % (2-12); NEUTROPHILS # (AUTO) 6.5 X10'3 (1.8-7.7); NEUTROPHILS % (AUTO) 62.3 % (42-75); PLATELET COUNT 203 X10'3 (140-440); RED BLOOD COUNT 3.59 X10'6 (4.20-5.60); RED CELL DISTRIBUTION WIDTH 13.8 % (11.5-14.5); WHITE BLOOD COUNT 10.5 X10'3 (4.5-11.0)
[2021-11-09] MEDS ORDERED: JUVEN Smoothie Arginine/Glut./Ca2+Bmb (Juven 19.3pkt) 240ml cup PO SCH (17:30)
--- NOTE | 2021-11-09 19:06 | NUR ---
Transferred from ICU to 3021. Arrived via w/c, Alert, Orientedx4, HRR Resp even and unlabored , Nonproductive cough noted-patient use heart pillow to assist with cough. Incentive spirometer at bedside. O2@room air 96-99%, skin warm and dry, midsternal inc with wound vac intact. Drsg to mid abd d/i,, Inc to rt inner lateral knee site glued-site without complication, Bruising noted to right inner thigh area.Pulses present.IV patent, Telemetry in use.
[2021-11-09] MEDS: atorvastatin 10mg tablet PO SCH (19:35)
[2021-11-10 02:00] VITALS: BP 111/62
[2021-11-10 06:00] VITALS: BP 113/59
[2021-11-10 06:19] LABS: BASOPHILS # (AUTO) 0.1 X10'3 (0-0.2); BASOPHILS % (AUTO) 0.6 % (0-1); EOSINOPHILS # (AUTO) 0.8 X10'3 (0-0.9); EOSINOPHILS % (AUTO) 6.8 % (0-6); HEMATOCRIT 31.5 % (35.0-45.0); HEMOGLOBIN 10.4 g/dl (12.0-16.0); LYMPHOCYTES # (AUTO) 3.6 X10'3 (1.1-4.8); LYMPHOCYTES % (AUTO) 31.4 % (21-51); MEAN CORPUSCULAR HEMOGLOBIN 30.2 PG (27.0-31.0); MEAN CORPUSCULAR HGB CONC 33.1 g/dL (33.0-36.5); MEAN CORPUSCULAR VOLUME 91.3 FL (78-98); MONOCYTES # (AUTO) 1.3 X10'3 (0-0.9); MONOCYTES % (AUTO) 11.4 % (2-12); NEUTROPHILS # (AUTO) 5.6 X10'3 (1.8-7.7); NEUTROPHILS % (AUTO) 49.8 % (42-75); PLATELET COUNT 217 X10'3 (140-440); RED BLOOD COUNT 3.45 X10'6 (4.20-5.60); RED CELL DISTRIBUTION WIDTH 13.7 % (11.5-14.5); WHITE BLOOD COUNT 11.4 X10'3 (4.5-11.0)
[2021-11-10 06:22] LABS: ALBUMIN 2.5 G/DL (3.4-5.0); ANION GAP -1 (8-16); BLOOD UREA NITROGEN 14 MG/DL (7-18); BUN/CREATININE RATIO 20.6 (6.6-38.0); CALCIUM 8.2 MG/DL (8.5-10.1); CHLORIDE 108 MMOL/L (99-107); CREATININE 0.68 MG/DL (0.40-0.90); GLUCOSE 82 MG/DL (70-104); POTASSIUM 3.9 MMOL/L (3.5-5.1); SODIUM 142 MMOL/L (135-145); eGFR 87 ML/MIN
[2021-11-10] MEDS ORDERED: AMIO200T67 PO (08:12)
[2021-11-10] MEDS ORDERED: HYDR-3964 PO (08:13)
[2021-11-10] MEDS: sennosides/docusate sodium tablet PO SCH (08:30)
[2021-11-10] MEDS: aspirin 325mg tablet, delayed-release (Ecotrin) PO SCH (08:30)
[2021-11-10] MEDS: potassium Cl 20 mEq SR tablet PO SCH (08:31)
[2021-11-10] MEDS: pantoprazole 40mg Tablet.DR PO SCH (08:32)
[2021-11-10] MEDS: metoprolol tartrate 12.5mg (1/2 tablet) PO SCH (08:33)
[2021-11-10] MEDS: magnesium Cl slow-release 64mg tablet PO SCH (08:34)
[2021-11-10] MEDS: amiodarone 200mg tablet PO SCH (08:34)
[2021-11-10] MEDS: terbinafine 250mg tablet PO SCH (08:35)
[2021-11-10] MEDS: nicotine 14mg patch - 24hr TD SCH (08:37)
== END 2021-11-10 12:30 | disposition home or self-care (01) | DRG 233 ==
LOC: SSTAY O 06:57 → ICU 2S 10:58 → PCU 3S 11-09 16:35
PROVIDERS: ADMIT Internal Medicine Cardiovascular Disease; ATTEND Internal Medicine Cardiovascular Disease
PROC: 4A023N7 Measurement of Cardiac Sampling and Pressure, Left Heart, Percutaneous Approach (ICD-10-PCS; 2021-11-04)
PROC: B2111ZZ Fluoroscopy of Multiple Coronary Arteries using Low Osmolar Contrast (ICD-10-PCS; 2021-11-04)
PROC: B2151ZZ Fluoroscopy of Left Heart using Low Osmolar Contrast (ICD-10-PCS; 2021-11-04)
PROC: B41D1ZZ Fluoroscopy of Aorta and Bilateral Lower Extremity Arteries using Low Osmolar Contrast (ICD-10-PCS; 2021-11-04)
PROC: B41F1ZZ Fluoroscopy of Right Lower Extremity Arteries using Low Osmolar Contrast (ICD-10-PCS; 2021-11-04)
PROC: B3111ZZ Fluoroscopy of Right Brachiocephalic-Subclavian Artery using Low Osmolar Contrast (ICD-10-PCS; 2021-11-04)
PROC: B31N1ZZ Fluoroscopy of Other Upper Arteries using Low Osmolar Contrast (ICD-10-PCS; 2021-11-04)
PROC: B3121ZZ Fluoroscopy of Left Subclavian Artery using Low Osmolar Contrast (ICD-10-PCS; 2021-11-04)
PROC: 021109W Bypass Coronary Artery, Two Arteries from Aorta with Autologous Venous Tissue, Open Approach (ICD-10-PCS; 2021-11-05)
PROC: 06BQ4ZZ Excision of Left Saphenous Vein, Percutaneous Endoscopic Approach (ICD-10-PCS; 2021-11-05)
PROC: 5A1221Z Performance of Cardiac Output, Continuous (ICD-10-PCS; 2021-11-05)
PROC: B24BZZ4 Ultrasonography of Heart with Aorta, Transesophageal (ICD-10-PCS; 2021-11-05)
PROC: 30233R1 Transfusion of Nonautologous Platelets into Peripheral Vein, Percutaneous Approach (ICD-10-PCS; 2021-11-05)
PROC: 02100Z9 Bypass Coronary Artery, One Artery from Left Internal Mammary, Open Approach (ICD-10-PCS; principal; 2021-11-05 03:40)
DX: I25.119 Atherosclerotic heart disease of native coronary artery with unspecified angina pectoris (principal); U07.1 COVID-19; I21.4 Non-ST elevation (NSTEMI) myocardial infarction; G89.4 Chronic pain syndrome; R45.1 Restlessness and agitation; R94.39 Abnormal result of other cardiovascular function study; R41.0 Disorientation, unspecified; Z98.1 Arthrodesis status; Z78.1 Physical restraint status; Z86.73 Personal history of transient ischemic attack (TIA), and cerebral infarction without residual deficits
CPT/HCPCS: 0232T; 93312; 93325; 93458; 93567; 36415; 36600; 71045; 80048; 80053; 81001; 82330; 82435; 82803; 82947; 82948; 83036; 83735; 84100; 84132; 84295; 84484; 85018; 85025; 85347; 85384; 85610; 85730; 86885; 86900; 86901; 86920; 87635; 93005; 93880; 93971; 94002; 94640; 94760; 97116; 97161; 97530; 99152; 99153; A4618; A4620; A6258; A6402; A6446; A6449; A7000; A7048; C1751; C1769; C9113; G0378; J0690; J1644; J1815; J2060; J2150; J2250; J2270; J2370; J2440; J2704; J2930; J3010; J3370; J3475; J3480; J3490; J7030; J7040; J7050; J7060; J7120; P9035; P9045; P9047; Q0163; Q9967